=== PATIENT | female | born 1990 | race Two or more races ===

== ENCOUNTER 2020-03-27 14:09 | Emergency (ER) | payer MEDICAID, OTHER ==
[2020-03-27 16:35] VITALS: BP 116/78
== END 2020-03-27 16:36 | disposition home or self-care (01) ==
LOC: ER 14:09
DX: O20.0 Threatened abortion (principal); Z3A.00 Weeks of gestation of pregnancy not specified
CPT/HCPCS: 36415; 84702; 99283; J7030

== ENCOUNTER 2020-08-06 15:30 | Observation (INO) | payer MEDICAID ==
[~2020-08-06] VITALS: Ht 137.2 cm; Wt 51.7 kg
[2020-08-06] MEDS ORDERED: TERBUTALINE SULFATE 1 MG/ML 1ML VIAL SC ONE (16:15)
[2020-08-06] MEDS ORDERED: PREN-96 PO (16:16)
[2020-08-06] MEDS ORDERED: LACTATED RINGER'S 1,000 ML IV ONE (16:45)
== END 2020-08-06 18:26 | disposition home or self-care (01) ==
LOC: LDRP 15:30
PROVIDERS: ADMIT Specialist; ATTEND Specialist
DX: O60.03 Preterm labor without delivery, third trimester (principal); Z3A.29 29 weeks gestation of pregnancy
CPT/HCPCS: 59025; 81002; 96360; 96372; G0378; J3105; 96361

== ENCOUNTER 2020-08-14 15:05 | Observation (INO) | payer MEDICAID ==
[~2020-08-14] VITALS: Ht 137.2 cm; Wt 51.3 kg
[~2020-08-14 15:05] MED LIST: PREN-96 PO
== END 2020-08-14 16:10 | disposition home or self-care (01) ==
LOC: LDRP 15:05
PROVIDERS: ADMIT Specialist; ATTEND Specialist
DX: O60.03 Preterm labor without delivery, third trimester (principal); O26.893 Other specified pregnancy related conditions, third trimester; R42 Dizziness and giddiness; Z3A.30 30 weeks gestation of pregnancy
CPT/HCPCS: 59025; 81002; G0378

== ENCOUNTER 2020-08-21 14:35 | Observation (INO) | payer MEDICAID ==
[2020-08-21] MEDS ORDERED: NIF10C PO (15:00)
== END 2020-08-21 15:33 | disposition home or self-care (01) ==
LOC: LDRP 14:35
PROVIDERS: ADMIT Obstetrics & Gynecology; ATTEND Obstetrics & Gynecology
DX: O60.03 Preterm labor without delivery, third trimester (principal); Z3A.31 31 weeks gestation of pregnancy
CPT/HCPCS: 59025; 81002; G0378

== ENCOUNTER 2020-08-28 14:11 | Observation (INO) | payer MEDICAID ==
[~2020-08-28] VITALS: Ht 134.6 cm; Wt 65.8 kg
[~2020-08-28 14:11] MED LIST changes: +NIF10C PO
[2020-08-28] MEDS ORDERED: BETAMETHASONE ACET (6MG/ML) 5ML VIAL IM ONE (16:00)
[2020-08-28] MEDS ORDERED: TERBUTALINE SULFATE 1 MG/ML 1ML VIAL SC SCH (16:00)
[2020-08-28] MEDS ORDERED: PROG1CAP2 VG (17:48)
[2020-08-29] MEDS ORDERED: [UNRECOGNIZED DRUG - CODE] SC (19:08)
== END 2020-08-28 17:21 | disposition home or self-care (01) ==
LOC: LDRP 14:11
PROVIDERS: ADMIT Obstetrics & Gynecology; ATTEND Obstetrics & Gynecology
DX: O60.03 Preterm labor without delivery, third trimester (principal); Z3A.32 32 weeks gestation of pregnancy
CPT/HCPCS: 59025; 81002; 94760; 96372; G0378; J0702; J3105

== ENCOUNTER 2020-08-29 18:46 | Observation (INO) | payer MEDICAID ==
[~2020-08-29] VITALS: Ht 137.2 cm; Wt 51.3 kg
[~2020-08-29 18:46] MED LIST changes: +PROG1CAP2 VG
[2020-08-29] MEDS ORDERED: [UNRECOGNIZED DRUG - CODE] SC (19:08)
[2020-08-29] MEDS ORDERED: BETAMETHASONE ACET (6MG/ML) 5ML VIAL IM SCH (20:27)
== END 2020-08-29 20:38 | disposition home or self-care (01) ==
LOC: LDRP 18:46
PROVIDERS: ADMIT Specialist; ATTEND Specialist
DX: O60.03 Preterm labor without delivery, third trimester (principal); Z3A.32 32 weeks gestation of pregnancy
CPT/HCPCS: 59025; 81002; 96372; G0378; J0702

== ENCOUNTER 2020-09-05 14:13 | Observation (INO) | payer MEDICAID ==
[~2020-09-05 14:13] MED LIST changes: +[UNRECOGNIZED DRUG - CODE] SC
[2020-09-05] MEDS ORDERED: TERBUTALINE SULFATE 1 MG/ML 1ML VIAL SC ONE ×2 (15:12→15:15)
== END 2020-09-05 15:41 | disposition home or self-care (01) ==
LOC: LDRP 14:13
PROVIDERS: ADMIT Obstetrics & Gynecology; ATTEND Obstetrics & Gynecology
DX: O60.03 Preterm labor without delivery, third trimester (principal); Z3A.33 33 weeks gestation of pregnancy
CPT/HCPCS: 59025; 81002; 96372; G0378; J3105

== ENCOUNTER 2020-09-10 08:32 | Observation (INO) | payer MEDICAID | END 2020-09-10 09:47 | disposition home or self-care (01) | LOC: LDRP 08:32 | PROVIDERS: ADMIT Obstetrics & Gynecology; ATTEND Obstetrics & Gynecology | DX: O60.03 Preterm labor without delivery, third trimester (principal); Z3A.34 34 weeks gestation of pregnancy | CPT/HCPCS: 59025; 76818; 81002; G0378 ==